=== PATIENT | male | born 1950 | race Caucasian/White ===

== ENCOUNTER 2017-01-03 08:09 | Observation (INO) ==
[2017-01-03] MEDS ORDERED: Lidocaine -MPF 1% 2 ML VIAL ID ONE ×2 (08:21→08:48)
--- NOTE | 2017-01-03 08:29 | Anesthesia Evaluation PreOp ---
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 History: Denies Any Significant HX Other Medical History: Denies Any Significant HX Anesthesia History: No Prior Anesthetic Complications Alcohol Use: heavy Drug use: none Medications and Allergies Aspirin [Lo-Dose Aspirin EC] 81 mg PO DAILY 01/03/17 [History] Budesonide/Formoterol 160/4.5 [Symbicort 160/4.5] 2 puff IH BIDR 01/03/17 [ History] Folic Acid 1 mg PO DAILY 01/03/17 [History] Ipratropium/Albuterol Sulfate [Combivent Respimat Inhal [place]] 1 puff IH QID PRN 01/03/17 [History] Metoprolol [Lopressor] 25 mg PO BID 01/03/17 [History] Multivitamin [One Daily Multivitamin] 1 each PO DAILY 01/03/17 [History] Naproxen [Naprosyn] 500 mg PO BID 01/03/17 [History] Pantoprazole Sodium [Protonix] 40 mg PO DAILY 01/03/17 [History] Potassium Chloride 20 meq PO DAILY 01/03/17 [History] Simvastatin [Zocor] 40 mg PO HS 01/03/17 [History] Spironolactone [Aldactone] 25 mg PO DAILY 01/03/17 [History] Sucralfate [Carafate] 1 gm PO BID 01/03/17 [History] Tamsulosin [Flomax] 0.4 mg PO DAILY 01/03/17 [History] Vitamin B Complex 1 each PO DAILY 01/03/17 [History] Allergies No Known Allergies Allergy (Verified 01/03/17 08:28) - Meds/Allergy Pre-op Review Medications Reviewed: Yes Allergies Reviewed: Yes Beta Blockers on Current Med List: Yes Anesthesia Results - Labs Laboratory Tests 06/22/15 12/23/16 12/23/16 11:31 16:31 16:31 Hgb 11.3 L Hct 33.7 L Plt Count 331 PT 13.3 H INR 1.24 PTT 27.0 Sodium 137 Potassium 4.1 BUN 10 Creatinine 0.74 - Imaging EKG: report reviewed (SR) Additional studies: LVEF 45% from 2015 ECHO, Pulm Htn 59 mm hg Anesthesia Exam O2 Sat Height 1.7 m Height 1.7 m Weight 76.204 kg Weight 76.204 kg O2 Sat by Pulse Oximetry 98 Vital Signs Temp Pulse Resp BP Pulse Ox 98.0 F 90 18 128/74 98 01/03/17 08:27 01/03/17 08:27 01/03/17 08:27 01/03/17 08:27 01/03/17 08:27 Height: 5'7 Weight: 168 lbs NPO (# of Hours): MN Pain Scale: 0 - HEENT Pupil (Motor): Pupils equal, EOMI Mallampati: II Oral Opening: Greater than 3 - SO[place]ELT LOC: Oriented SO[place]EL[place] Motor: Normal RUE, Normal LUE, Normal RLE, Normal LLE, Normal Face SOLE [place]ELT Sensory: Normal: RUE, LUE, RLE, LLE, Face - Cardiac Rhythm: Regular Murmur: None JVD: No Carotid Bruit: No - Pulmonary Breath Sounds: bilateral Clear Respiratory Effort: Symmetrical Anesthesia Assess/Plan ASA Score: 3 (CAD HTN ETOH Abuse) Modified [place] Scale for Level of Consciousness: Cooperative, oriented, and tranquil Anesthetic Plan: General Monitoring Plan: Standard Monitors Recovery Plan: PACU (Discussed GA, agrees to proceed)
[2017-01-03] MEDS ORDERED: Ringers Solution, Lactated 1,000 ML IVC SCH ×2 (08:30→09:00)
[2017-01-03] MEDS ORDERED: Albuterol 2.5 MG/3 ML NEBULIZER IH ONE (08:48)
[2017-01-03] MEDS ORDERED: *HR* FentaNYL (PF) 100 MCG/2 ML VIAL ONE (09:18)
[2017-01-03] MEDS ORDERED: *HR* Propofol 200 MG/20 ML VIAL IVP ONE (09:24)
[2017-01-03] MEDS ORDERED: *HR* Succinylcholine 200 MG/10 ML VIAL IVP ONE (09:24)
--- NOTE | 2017-01-03 11:03 | History & Physical Report ---
Date of Encounter: 01/03/17 Time of Encounter: 09:45 24 Hour HP Update - Instructions Instructions: If the History and Physical is less than 30 days old and was completed prior to A.M. admission and or procedure and has NOT been updated on calendar day of procedure please complete this update prior to performing procedure. - Update Patient reports changes in Medical Condition: No Changes in examination, assessment, or condition: No Changes in Medication: No Preop tests/diagnostics Reviewed: Yes Surgery Remains Indicated: Yes Consent for Planned Operative Procedure(s) Verified: Yes
--- NOTE | 2017-01-03 11:13 | Anesthesia Evaluation Post Op ---
Date of Encounter: 01/03/17 Time of Encounter: 11:12 - Vital Signs Vital Signs: Vital Signs/O2 Sat, Most Current Temp Pulse Resp BP Pulse Ox 97.1 F L 71 16 125/72 96 01/03/17 10:40 01/03/17 10:50 01/03/17 10:50 01/03/17 10:50 01/03/17 10:50 - Lungs Lungs: Clear Ascult./Percussion - Airway Airway: Non-obstructed - Cardiovascular Regular Rate - Mental Status Mental Status: Alert & Oriented, Answers Appropriately - Pain Pain Scale: 1 Pain Scale used: Numeric (1 - 10) - Nausea Vomiting Nausea Vomiting: Not Present - Hydration Hydration: NPO - Discharge PostOp Status: Transfer Patient to floor (VSS, 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
[2017-01-03] MEDS ORDERED: Ondansetron 4 MG/2 ML VIAL IVP ONE (12:00)
[2017-01-03 12:48] LABS: Source of Body Fluid LUL BAL
[2017-01-03 14:50] LABS: Appearance of Body Fluid Cloudy (Clear); Volume of Body Fluid 25 mL
[2017-01-03] MEDS ORDERED: Naloxone 0.4 MG/ML INJ IVP PRN (17:06)
[2017-01-03] MEDS ORDERED: predniSONE 20 MG TABLET PO SCH (17:14)
[2017-01-03] MEDS ORDERED: Azithromycin 250 MG TABLET PO ONE (17:14)
[2017-01-03] MEDS ORDERED: Albuterol 2.5 MG/3 ML NEBULIZER IH PRN (17:16)
--- NOTE | 2017-01-03 18:06 | Internal Med History&Physical ---
<GabinoNita J - Last Filed: 01/03/17 18:12> Date of Encounter: 01/03/17 Time of Encounter: 18:04 Assessment and Plan (1) COPD (chronic obstructive pulmonary disease) Current visit: No Status: Chronic With acute exacerbation. Wheezing on exam and reports increased sputum production. Steroid burst, Z-pack. Continue home inhalers, nebs. Chest x-ray pending Qualifiers: COPD type: COPD with acute exacerbation Qualified Code(s): J44.1 - Chronic obstructive pulmonary disease with (acute) exacerbation (2) Lung mass Current visit: Yes Status: Acute Left upper lobe mass noted on previous imaging. Concern for malignancy with smoking history. Status post lung biopsy 01/03/2017. Pathology and studies pending. Plan for discharge home on 01/04/2017 with outpatient follow-up (3) Essential (primary) hypertension Current visit: Yes Status: Acute Per history. Blood pressure controlled. Continue home BP meds, monitor BP and titrate when necessary (4) CAD (coronary artery disease) Current visit: Yes Status: Acute Per history with CABG 3. Asymptomatic, denies chest pain. Continue home ASA, statin, beta cintia Qualifiers: Coronary Disease-Associated Artery/Lesion type: bypass graft [place] vs. transplanted heart: [place] heart Associated angina: without angina Qualified Code(s): I25.810 - Atherosclerosis of coronary artery bypass graft(s) without angina pectoris (5) DVT prophylaxis Current visit: No Status: Acute SCDs and ambulation Internal Medicine - H&P: HPI Chief complaint: Status post lung biopsy under general anesthesia, lives alone, monitor Admitted From: Home History of present illness: Mr. Correa is a 66 year old male with past medical history hypertension CAD and COPD who presented to [facility] on 01/03/2017 for planned lung biopsy. Procedure was done under general anesthesia and per policy since patient lives alone he would need to be monitored for 24 hours post anesthesia. Therefore he was placed in observation status for continued monitoring. Information obtained from chart review and patient report per patient lung nodule was found on left lung and there is suspicion for possible malignancy. He does have some wheezing on exam and when asked he does report increase in sputum production, no chest pain or shortness of breath, says he was treated for COPD exacerbation a month or so ago. Past Med Surg Social Fam HX - Past Medical History Medical history: asthma, atrial fibrillation, COPD, coronary artery disease, GERD, hyperlipidemia, hypertension, myocardial infarction, valvular heart disease Psychiatric history: no psych history - Past Surgical History Surgical History: coronary bypass (CABG), other - Social History Smoking Status: Former smoker Smokeless Tobacco Status: No Alcohol use: heavy Drug use: none - Family History Mother Adopted: No Family Member Ethnicity: Non- Living Status: Hx Family Cardiac Disorders: No Hx Family Respiratory Disorders: No Hx Family Cancer: No Hx Family GI Disorders: No Hx Family Endocrine Disorder: No Hx Family Neuromuscular Disorders: No Hx Family Neurologic Disorders: Yes (dementia) Hx Family HEENT Disorders: No Hx Family Autoimmune Disorders: No Father Living Status: Hx Family Cancer: Yes (bladder) Internal Medicine - H&P: Meds Aspirin [Lo-Dose Aspirin EC] 81 mg PO DAILY 01/03/17 [History] Atorvastatin [Lipitor] 40 mg PO HS 01/03/17 [History] Budesonide/Formoterol 160/4.5 [Symbicort 160/4.5] 2 puff IH BIDR 01/03/17 [ History] Cyanocobalamin (Vitamin B-12) [Vitamin B-12] 500 mcg PO DAILY 01/03/17 [History] Folic Acid 1 mg PO DAILY 01/03/17 [History] Ipratropium/Albuterol Sulfate [Combivent Respimat Inhal [place]] 1 puff IH QID PRN 01/03/17 [History] Metoprolol [Lopressor] 12.5 mg PO BID 01/03/17 [History] Multivitamin [One Daily Multivitamin] 1 each PO DAILY 01/03/17 [History] Naproxen [Naprosyn] 500 mg PO BID 01/03/17 [History] Pantoprazole Sodium [Protonix] 40 mg PO DAILY 01/03/17 [History] Potassium Chloride 20 meq PO DAILY 01/03/17 [History] Spironolactone [Aldactone] 25 mg PO DAILY 01/03/17 [History] Sucralfate [Carafate] 1 gm PO BID 01/03/17 [History] Terazosin HCl 10 mg PO DAILY 01/03/17 [History] Vitamin B Complex 1 each PO DAILY 01/03/17 [History] Allergies No Known Allergies Allergy (Verified 01/03/17 08:28) All Systems PM: A 10-system review of systems was performed and is negative for pertinent findings except as documented above in the HPI. - Constitutional Constitutional: no chills, no fever(s), no night sweats - EENT Eyes: no change in vision, no discharge, no pain, no photophobia Ears: no ear discharge, no ear pain, no tinnitus Nose, mouth and throat: no dysphagia, no nasal discharge, no neck pain, no sore throat - Cardiovascular Cardiovascular ROS IM: no chest pain, no diaphoresis, no dyspnea, no lightheadedness, no palpitations, no syncope - Respiratory Respiratory: cough, wheezing, excessive phlegm production, no dyspnea - Gastrointestinal Gastrointestinal: no abdominal pain, no diarrhea, no hematemesis, no hematochezia, no melena, no nausea, no vomiting - Musculoskeletal Musculoskeletal ROS IM: no numbness, no tingling - Integumentary Integumentary IM: no rash, no unusual bruising - Neurological Neurological ROS: no confusion, no convulsions, no focal weakness, no numbness, no tingling, no tremor(s) - Hematologic/Lymphatic Hematologic/Lymphatic: no easy bruising - Constitutional Vitals: Temp Pulse Resp BP Pulse Ox 98.2 F 76 18 122/75 94 01/03/17 15:24 01/03/17 15:24 01/03/17 15:24 01/03/17 15:24 01/03/17 15:24 General appearance: Present: A&O X 3, no acute distress - Head Head exam: Present: atraumatic, normocephalic - Eye Eye exam: Present: PERRL, conjuntiva pink, sclera anicteric Pupils: Present: PERRL - Neck Neck exam general surgery: Present: supple, trachea midline. Absent: lymphadenopathy - Respiratory Respiratory exam: Present: CTAB, rhonchi, wheezes. Absent: accessory muscle use , rales - Cardiovascular Cardiovascular exam: Present: RRR, +S1, +S2. Absent: diastolic murmur, gallop, rubs, systolic murmur - GI/Abdominal GI/Abdominal exam: Present: normal bowel sounds, soft, no peritoneal signs. Absent: distended, tenderness - Extremities Exam Extremities exam: Present: warm, radial pulses palpable and symetrical. Absent : calf tenderness, cyanotic, pedal edema - Neurological Exam Neurological exam: Present: CN II-XII intact, oriented X3, no focal deficits. Absent: pronater drift, facial droop, speech deficit - Skin Skin exam: Present: dry, intact <Ashwini Camacho - Last Filed: 01/03/17 20:32> Date of Encounter: 01/03/17 Internal Medicine - H&P: HPI History of present illness: Mr. Correa is a 66 year old male All Systems PM: A 10-system review of systems was performed and is negative for pertinent findings except as documented above in the HPI. - Constitutional Vitals: Temp Pulse Resp BP Pulse Ox 98.2 F 76 18 122/75 99 01/03/17 15:24 01/03/17 15:24 01/03/17 19:39 01/03/17 15:24 01/03/17 19:39 - Attending Attestation I examined this patient and reviewed laboratory, imaging and all diagnostic data. My medical decision-making was reviewed with Nita Lloyd - KOBY. I agree with the documented findings, disposition and treatment plan as described above. Mr. Correa is a 66 year old male with past medical history of HTN, CAD and COPD who underwent a planned bronchoscopy with lung biopsy this morning. Procedure was done under general anesthesia and per policy since patient lives alone he would need to be monitored for 24 hours post anesthesia. Therefore, he was placed in observation status for continued monitoring. Patient reports productive cough and mild wheezing after procedure. Examination shows mild wheezes, more in right lung field than left. He is tolerating room air well. A/P : COPD. pt uses at home combivent 4 times a day and symbicort. Duonebs q4hrs. Symbicort. CXR ordered. will hold on atb and steroids at this time.
[2017-01-03] MEDS: Budesonide/Formoterol 160/4.5 MDI IH SCH (19:39)
[2017-01-03] MEDS: Ipratropium/Albuterol Neb 3 ML IH SCH ×2 (23:18→23:23)
[2017-01-04] MEDS: Ipratropium/Albuterol Neb 3 ML IH SCH ×2 (03:34→08:04)
[2017-01-04 06:09] LABS: Basophils % 0.1 %; Hematocrit 31.8 % (37.5-50.1); Hemoglobin 10.7 g/dL (12.9-16.9); Immature Granulocytes % 0.8 % (0-4); Lymphocytes # 0.9 K/mcL (0.6-4.6); Lymphocytes % 6.6 %; Mean Corpuscular HGB Conc 33.6 g/dL (31.6-35.5); Mean Corpuscular Hemoglobin 34.6 pg (28.0-33.3); Mean Corpuscular Volume 102.9 fL (83.0-100.0); Mean Platelet Volume 9.8 fL (9.4-12.4); Monocytes # 0.5 K/mcL (0.0-1.3); Monocytes % 3.7 %; Platelet Count 260 K/mcL (140-400); Red Blood Count 3.09 M/mcL (4.19-5.50); Red Cell Distribution Width 13.1 % (11.5-14.5); Segmented Neutrophils % 88.8 %
[2017-01-04 06:27] LABS: Alanine Aminotransferase 29 Units/L (0-55); Albumin 3.8 g/dL (3.5-5.0); Albumin/Globulin Ratio 1.1 (1.1-2.2); Alkaline Phosphatase 69 Units/L (38-126); Aspartate Amino Transferase 19 Units/L (5-34); BUN/Creatinine Ratio 21 (6-26); Bilirubin,Total 0.3 mg/dL (0.2-1.2); Blood Urea Nitrogen 17 mg/dL (8-26); Calcium 9.4 mg/dL (8.6-10.8); Carbon Dioxide 21 mEq/L (19-29); Chloride 103 mEq/L (98-109); Globulin 3.6 g/dL (2.4-3.5); Glucose 177 mg/dL (70-99); Osmolality,Calculated 292 (280-300); Potassium 3.9 mEq/L (3.5-4.5); Sodium 138 mEq/L (136-145); Total Protein 7.4 g/dL (6.0-8.3); eGFR For African Americans > 60 (> 60); eGFR For Non-African Americans > 60 (> 60)
[2017-01-04 07:30] VITALS: BP 131/77
[2017-01-04] MEDS: Budesonide/Formoterol 160/4.5 MDI IH SCH (08:04)
--- NOTE | 2017-01-04 08:50 | Discharge Summary ---
Date of Encounter: 01/04/17 Time of Encounter: 08:46 - Discharge Diagnosis (1) COPD (chronic obstructive pulmonary disease) Priority: Primary Status: Acute Qualifiers: COPD type: COPD with acute exacerbation Qualified Code(s): J44.1 - Chronic obstructive pulmonary disease with (acute) exacerbation (2) Lung mass Priority: Primary Status: Chronic (3) CAD (coronary artery disease) Priority: Secondary Status: Chronic Qualifiers: Coronary Disease-Associated Artery/Lesion type: bypass graft [place] vs. transplanted heart: [place] heart Associated angina: without angina Qualified Code(s): I25.810 - Atherosclerosis of coronary artery bypass graft(s) without angina pectoris (4) Essential (primary) hypertension Priority: Secondary Status: Chronic (5) Aortic stenosis, severe Priority: Secondary Status: Chronic - Discharge Medications Prescriptions: Azithromycin [Azithromycin 6-Tab Pack] 250 mg PO PER PKG DI #6 tab PredniSONE [Deltasone] 40 mg PO DAILY #3 tablet Home Medications: Aspirin [Lo-Dose Aspirin EC] 81 mg PO DAILY 01/03/17 [History] Atorvastatin [Lipitor] 40 mg PO HS 01/03/17 [History] Budesonide/Formoterol 160/4.5 [Symbicort 160/4.5] 2 puff IH BIDR 01/03/17 [ History] Cyanocobalamin (Vitamin B-12) [Vitamin B-12] 500 mcg PO DAILY 01/03/17 [History] Folic Acid 1 mg PO DAILY 01/03/17 [History] Ipratropium/Albuterol Sulfate [Combivent Respimat Inhal [place]] 1 puff IH QID PRN 01/03/17 [History] Metoprolol [Lopressor] 12.5 mg PO BID 01/03/17 [History] Multivitamin [One Daily Multivitamin] 1 each PO DAILY 01/03/17 [History] Naproxen [Naprosyn] 500 mg PO BID 01/03/17 [History] Pantoprazole Sodium [Protonix] 40 mg PO DAILY 01/03/17 [History] Potassium Chloride 20 meq PO DAILY 01/03/17 [History] Spironolactone [Aldactone] 25 mg PO DAILY 01/03/17 [History] Sucralfate [Carafate] 1 gm PO BID 01/03/17 [History] Terazosin HCl 10 mg PO DAILY 01/03/17 [History] Vitamin B Complex 1 each PO DAILY 01/03/17 [History] Azithromycin [Azithromycin 6-Tab Pack] 250 mg PO PER PKG DI #6 tab 01/04/17 [Rx] PredniSONE [Deltasone] 40 mg PO DAILY #3 tablet 01/04/17 [Rx] Allergies/Adverse Reactions: Allergies No Known Allergies Allergy (Verified 01/03/17 08:28) Date of admission: 01/03/17 17:06 Primary care physician: PCP [place] Discharging clinician: Osiel Smith Anticipated date of discharge: 01/04/17 - Patient Status Disposition: Home, Self-Care Condition: Good Functional capacity at discharge: independent ambulation Overall status at discharge: patient is progressing back to baseline - Discharge Instructions Follow [facility] With: [facility] [Primary Care Provider] - - Diet and Activity Activity: increase activity as tolerated Diet: advance to your usual diet Hospital course: Mr. Correa is a 66 year old male with hx of COPD, CAD had outpatient bronchoscopy to eval lung mass. He tolerated procedure well but in order to go home he had to have someone stay with him for 24 hours. No one was available so he was placed in observation. Mr. Correa was placed in observation following bronchoscopy. He had significant wheezing on admission and was treated for acute COPD exacerbation. He was given PO abx and PO steroids as well as aerosols. This morning he is doing better. He is still wheezing but feels about at baseline. He is afebrile with good vitals and at this time is felt stable for discharge home. He will be given brief course of steroids and abx at discharge. - Time Spent with Patient Total time spent providing and/or coordinating discharge services: 32min - Constitutional Vitals: Temp Pulse Resp BP Pulse Ox 98.5 F 95 18 131/77 98 01/04/17 07:29 01/04/17 07:29 01/04/17 07:29 01/04/17 07:29 01/04/17 07:29 General appearance: Present: A&O X 3, pleasant, answers questions appropriately - Head Head exam: Present: normocephalic - Eye Eye exam: Present: conjuntiva pink - ENT ENT exam: Present: mucous membranes moist - Respiratory Respiratory exam: Present: prolonged expiratory phase, wheezes. Absent: respiratory distress - Cardiovascular Cardiovascular exam: Present: RRR, systolic murmur - GI/Abdominal GI/Abdominal exam: Present: soft. Absent: mass, tenderness - Extremities Exam Extremities exam: Present: warm. Absent: pedal edema - Neurological Exam Neurological exam: Present: alert, oriented X3, no focal deficits - Psychiatric Psychiatric exam: Present: normal affect, normal mood - Skin Skin exam: Present: dry, warm. Absent: rash
[2017-01-04] MEDS ORDERED: Aspirin Enteric Coated 81 MG Tablet PO SCH (09:00)
[2017-01-04] MEDS ORDERED: Spironolactone 25 MG TABLET PO SCH (09:00)
[2017-01-05] MEDS ORDERED: Azithromycin 250 MG TABLET PO SCH (09:00)
== END 2017-01-04 09:25 | disposition home or self-care (01) ==
LOC: SAMDAY 08:09 → 2ANU 08:09 → SUATTDRO 17:06
PROVIDERS: ADMIT Registered Nurse; ATTEND Internal Medicine

== ENCOUNTER 2017-01-24 07:52 | Inpatient (IN) ==
[2017-01-24 09:51] LABS: INR 1.1; Prothrombin Time 11.5 Seconds (9.4-12.1)
[2017-01-24] MEDS: Ringers Solution, Lactated 500 ML IVC SCH ×2 (09:52→14:43)
[2017-01-24] MEDS ORDERED: *HR* Midazolam HCl 2 MG/2 ML VIAL IVP PRN (10:07)
[2017-01-24] MEDS ORDERED: *HR* FentaNYL (PF) 100 MCG/2 ML VIAL IVP PRN (10:07)
--- NOTE | 2017-01-24 10:53 | History & Physical Report ---
Date of Encounter: 01/24/17 Time of Encounter: 10:00 24 Hour HP Update - Instructions Instructions: If the History and Physical is less than 30 days old and was completed prior to A.M. admission and or procedure and has NOT been updated on calendar day of procedure please complete this update prior to performing procedure. - Update Patient reports changes in Medical Condition: No Changes in examination, assessment, or condition: No Changes in Medication: No Preop tests/diagnostics Reviewed: Yes Surgery Remains Indicated: Yes Consent for Planned Operative Procedure(s) Verified: Yes - Pre-Operative Checklist Preoperative Checklist Indicated: Yes Prophylactic Antibiotic Ordered: No Home Medications Include Beta Tha: Yes Beta Tha Taken Today (Day of Surgery): Yes Beta Tha Taken Yesterday (Day Prior to Surgery): Yes Is VTE Prophylaxis Indicated?: NO
--- NOTE | 2017-01-24 10:54 | Pre-Sedation Evaluation ---
Pre-sedation evaluation - Pre-sedation checklist Date of procedure: 01/24/17 Procedure: ct guided Left lung biopsy Recent Vitals: Last Vital Signs Temp 97.9 F 01/24/17 09:44 Pulse 66 01/24/17 10:47 Resp 14 01/24/17 10:47 BP 99/68 01/24/17 10:47 Pulse Ox 95 01/24/17 10:47 H&P (including ROS) documented in medical record: Yes Previous reaction to sedatives/anesthetics: No Dietary Status: NPO after Midnight Airway Assessment: Patient can open mouth completely, TMJ function normal, Micrognathia (under-bite, receding chin) absent, Neck with adequate range of motion Dentition: No loose teeth or bridges Possible difficult airway: No ASA Classification *see protocol: CLASS II-Mild systemic disease Plan of Care: Pt appropriate candidate for procedure/moderate/conscious sedation , Risks/benefits of procedure/sedation discussed w/ patient/family, If not NPO; Risk of intake outweiged by necessity to perform procedure
--- NOTE | 2017-01-24 10:55 | IR Procedure Note ---
Date of procedure: 01/24/17 Consent Obtained: Written consent Timeout: Correct patient and procedure verified, Correct site verified, Time out performed, Skin prep completed Local anesthetic: Lidocaine 1% Indications: Left lung PET positive nodule Procedure Performed: Left lung bx Site/Technique: Percutaneous technique Results/Findings: No ptx s/p bx. Portable cxr to be done in 2 hrs and in am. Estimated blood loss (cc): 0 Complications: None; Tolerated procedure well Post Procedure Treatment Plan: Monitoring for 23hr obs for ptx risk, emphysema.
[2017-01-24] MEDS ORDERED: Naloxone 0.4 MG/ML INJ IVP PRN (11:18)
[2017-01-24] MEDS ORDERED: *HR* Morphine 2 MG/ML SYRINGE IVP PRN (11:18)
[2017-01-24] MEDS ORDERED: Acetaminophen 325 MG TABLET PO PRN (11:18)
--- NOTE | 2017-01-24 12:18 | Internal Med History&Physical ---
Date of Encounter: 01/24/17 Time of Encounter: 12:18 Assessment and Plan (1) Status post biopsy Current visit: Yes Status: Acute Follow repeat CXR for pneumothorax monitoring Rpt CXR a.m as well Monitor closely Anticipate discharge a.m if not CXR findings (2) Lung mass Current visit: Yes Status: Chronic Follow up results and follow up with Oncology and Pulmonology as out-patient (3) COPD (chronic obstructive pulmonary disease) Current visit: Yes Status: Chronic Not wheezing at this time Resume home meds [place] prn Qualifiers: COPD type: COPD with acute exacerbation Qualified Code(s): J44.1 - Chronic obstructive pulmonary disease with (acute) exacerbation (4) CAD (coronary artery disease) Current visit: Yes Status: Chronic No chest pain Resume home meds Qualifiers: Coronary Disease-Associated Artery/Lesion type: bypass graft [place] vs. transplanted heart: [place] heart Associated angina: without angina Qualified Code(s): I25.810 - Atherosclerosis of coronary artery bypass graft(s) without angina pectoris (5) Essential (primary) hypertension Current visit: Yes Status: Chronic Blood pressure controlled at this time, resume home meds Internal Medicine - H&P: HPI Chief complaint: I had a biopsy Admitted From: Home Plans for Post Hospital Care: Home History of present illness: 66 Y/O M with PMH of HTN, CAD s/p CABG, Emphysema, Aortic Stenosis s/p AVR, Lung nodule s/p biopsy November 2016 with results showing benign lymphocytes, scheduled for another biopsy today, IR guided by radiology Procedure was done under general anesthesia, patient with emphysema and high risk for pneumothorax, also, patient is supposed to be monitored at home for the next 24 hours post-op, however, patient lives alone and has no family members. Radiologist called and requested observation in the hospital for the next few hours. Patient seen and evaluated at bedside, s/p biopsy. Denies new complains, has no pain, no cough, no difficulty breathing, seems to be at his baseline, no change in urinary or bowel habits. No fever or chills. Denies any complains at all He has no advanced directives and he is full code Repeat CXR is pending and scheduled for 2 hrs post-procedure At bedside, patient looks comfortable, in no form of distress, speaks full sentences, breathing comfortably Past Med Surg Social Fam HX - Past Medical History Medical history: asthma, atrial fibrillation, COPD, coronary artery disease, GERD, hyperlipidemia, hypertension, myocardial infarction, valvular heart disease Psychiatric history: no psych history - Past Surgical History Surgical History: coronary bypass (CABG), other - Social History Smoking Status: Former smoker Smokeless Tobacco Status: No Alcohol use: heavy Drug use: none - Family History Mother Adopted: No Family Member Ethnicity: Non- Living Status: Hx Family Cardiac Disorders: No Hx Family Respiratory Disorders: No Hx Family Cancer: No Hx Family GI Disorders: No Hx Family Endocrine Disorder: No Hx Family Neuromuscular Disorders: No Hx Family Neurologic Disorders: Yes (dementia) Hx Family HEENT Disorders: No Hx Family Autoimmune Disorders: No Father Living Status: Hx Family Cancer: Yes (bladder) Internal Medicine - H&P: Meds Aspirin [Lo-Dose Aspirin EC] 81 mg PO DAILY 01/03/17 [History] Atorvastatin [Lipitor] 40 mg PO HS 01/03/17 [History] Budesonide/Formoterol 160/4.5 [Symbicort 160/4.5] 2 puff IH BIDR 01/03/17 [ History] Cyanocobalamin (Vitamin B-12) [Vitamin B-12] 500 mcg PO DAILY 01/03/17 [History] Folic Acid 1 mg PO DAILY 01/03/17 [History] Ipratropium/Albuterol Sulfate [Combivent Respimat Inhal [place]] 1 puff IH QID PRN 01/03/17 [History] Metoprolol [Lopressor] 12.5 mg PO BID 01/03/17 [History] Multivitamin [One Daily Multivitamin] 1 each PO DAILY 01/03/17 [History] Pantoprazole Sodium [Protonix] 40 mg PO DAILY 01/03/17 [History] Spironolactone [Aldactone] 25 mg PO DAILY 01/03/17 [History] Sucralfate [Carafate] 1 gm PO BID 01/03/17 [History] Terazosin HCl 10 mg PO DAILY 01/03/17 [History] Ascorbic Acid [Vitamin C] 500 mg PO DAILY 01/24/17 [History] Nitroglycerin [Nitrostat] 0.4 mg SL PRN PRN 01/24/17 [History] Allergies No Known Allergies Allergy (Verified 01/03/17 08:28) All Systems PM: A 10-system review of systems was performed and is negative for pertinent findings except as documented above in the HPI. - Constitutional Constitutional: no chills, no fever(s), no night sweats - EENT Eyes: no change in vision, no discharge, no pain, no photophobia Ears: no ear discharge, no ear pain, no tinnitus Nose, mouth and throat: no dysphagia, no nasal discharge, no neck pain, no sore throat - Cardiovascular Cardiovascular ROS IM: no chest pain, no diaphoresis, no dyspnea, no lightheadedness, no palpitations, no syncope - Respiratory Respiratory: no cough, no dyspnea, no wheezing, no excessive phlegm production - Gastrointestinal Gastrointestinal: no abdominal pain, no diarrhea, no hematemesis, no hematochezia, no melena, no nausea, no vomiting - Musculoskeletal Musculoskeletal ROS IM: no numbness, no tingling - Integumentary Integumentary IM: no rash, no unusual bruising - Neurological Neurological ROS: no confusion, no convulsions, no focal weakness, no numbness, no tingling, no tremor(s) - Hematologic/Lymphatic Hematologic/Lymphatic: no easy bruising - Constitutional Vitals: Temp Pulse Resp BP Pulse Ox 97.9 F 68 16 126/70 100 01/24/17 11:42 01/24/17 11:42 01/24/17 11:42 01/24/17 11:42 01/24/17 11:45 General appearance: Present: A&O X 3, pleasant, no acute distress - Head Head exam: Present: atraumatic, normocephalic - Eye Eye exam: Present: PERRL, conjuntiva pink, sclera anicteric Pupils: Present: PERRL - Neck Neck exam general surgery: Present: supple, trachea midline. Absent: lymphadenopathy - Respiratory Respiratory exam: Present: CTAB. Absent: accessory muscle use, rales, rhonchi, wheezes - Cardiovascular Cardiovascular exam: Present: RRR, +S1, +S2. Absent: diastolic murmur, gallop, rubs, systolic murmur - GI/Abdominal GI/Abdominal exam: Present: normal bowel sounds, soft, no peritoneal signs. Absent: distended, tenderness - Extremities Exam Extremities exam: Present: warm, radial pulses palpable and symetrical. Absent : calf tenderness, cyanotic, pedal edema - Neurological Exam Neurological exam: Present: alert, CN II-XII intact, oriented X3, no focal deficits. Absent: pronater drift, facial droop, speech deficit - Skin Skin exam: Present: dry, intact
[2017-01-24] MEDS ORDERED: Nitroglycerin 0.4 MG TAB.SUBL SL PRN (12:46)
--- NOTE | 2017-01-24 16:12 | IR Procedure Note ---
Date of procedure: 01/24/17 Consent Obtained: Written consent Timeout: Correct patient and procedure verified, Correct site verified, Time out performed, Skin prep completed Local anesthetic: Lidocaine 1% Indications: Pneumothorax after lung biopsy Procedure Performed: Chest tube placement Site/Technique: Left 10fr chest tube placement Results/Findings: Working well Estimated blood loss (cc): 1 Complications: None; Tolerated procedure well Post Procedure Treatment Plan: Monitoring in pts room
[2017-01-24] MEDS: *HR* HYDROcodone/Acet 5/325 mg TABLET PO PRN ×2 (16:24→20:11)
[2017-01-24] MEDS ORDERED: Ipratropium/Albuterol Neb 3 ML IH PRN (17:00)
[2017-01-24] MEDS: Budesonide/Formoterol 160/4.5 MDI IH SCH (21:15)
[2017-01-25] MEDS ORDERED: *HR* Enoxaparin 40 MG/0.4 ML SYRINGE SQ SCH (06:00)
[2017-01-25 07:00] LABS: Basophils # 0.1 K/mcL (0.0-0.2); Basophils % 0.9 %; Eosinophils # 0.2 K/mcL (0.0-0.6); Eosinophils % 4.4 %; Hematocrit 33.4 % (37.5-50.1); Hemoglobin 10.8 g/dL (12.9-16.9); Immature Granulocytes % 0.4 % (0-4); Lymphocytes # 1.3 K/mcL (0.6-4.6); Lymphocytes % 23.1 %; Mean Corpuscular HGB Conc 32.3 g/dL (31.6-35.5); Mean Corpuscular Hemoglobin 33.6 pg (28.0-33.3); Mean Platelet Volume 9.9 fL (9.4-12.4); Monocytes # 0.6 K/mcL (0.0-1.3); Monocytes % 11.5 %; Neutrophils # 3.3 K/mcL (1.6-8.9); Platelet Count 250 K/mcL (140-400); Red Blood Count 3.21 M/mcL (4.19-5.50); Red Cell Distribution Width 12.8 % (11.5-14.5); Segmented Neutrophils % 59.7 %
[2017-01-25] MEDS: *HR* HYDROcodone/Acet 5/325 mg TABLET PO PRN (08:08)
[2017-01-25] MEDS ORDERED: Folic Acid 1 MG TABLET PO SCH (09:00)
[2017-01-25] MEDS ORDERED: Spironolactone 25 MG TABLET PO SCH (09:00)
[2017-01-25] MEDS ORDERED: Aspirin Enteric Coated 81 MG Tablet PO SCH (09:00)
[2017-01-25] MEDS ORDERED: Ascorbic Acid 500 MG TABLET PO SCH (09:00)
[2017-01-25] MEDS ORDERED: Multivit/Ca/Min/Fe/FA 1 TAB TABLET PO SCH (09:00)
[2017-01-25] MEDS ORDERED: Cyanocobalamin (B-12) 1,000 MCG TABLET PO SCH (09:00)
[2017-01-25] MEDS: Budesonide/Formoterol 160/4.5 MDI IH SCH (10:04)
--- NOTE | 2017-01-25 15:07 | Discharge Summary ---
Date of Encounter: 01/25/17 Time of Encounter: 08:30 - Discharge Diagnosis (1) Status post biopsy Priority: Primary Status: Acute (2) COPD (chronic obstructive pulmonary disease) Priority: Secondary Status: Chronic Qualifiers: COPD type: emphysema Emphysema type: other Qualified Code(s): J43.8 - Other emphysema (3) Aortic stenosis, severe Priority: Secondary Status: Chronic (4) Essential (primary) hypertension Priority: Secondary Status: Chronic (5) CAD (coronary artery disease) Priority: Secondary Status: Chronic Qualifiers: Coronary Disease-Associated Artery/Lesion type: bypass graft [place] vs. transplanted heart: [place] heart Associated angina: without angina Qualified Code(s): I25.810 - Atherosclerosis of coronary artery bypass graft(s) without angina pectoris (6) Lung mass Priority: Secondary Status: Chronic - Discharge Medications Home Medications: Aspirin [Lo-Dose Aspirin EC] 81 mg PO DAILY 01/03/17 [History] Atorvastatin [Lipitor] 40 mg PO HS 01/03/17 [History] Budesonide/Formoterol 160/4.5 [Symbicort 160/4.5] 2 puff IH BID 01/03/17 [ History] Cyanocobalamin (Vitamin B-12) [Vitamin B-12] 500 mcg PO DAILY 01/03/17 [History] Ipratropium/Albuterol Sulfate [Combivent Respimat Inhal [place]] 1 puff IH QID PRN 01/03/17 [History] Metoprolol [Lopressor] 12.5 mg PO BID 01/03/17 [History] Multivitamin [One Daily Multivitamin] 1 each PO DAILY 01/03/17 [History] Pantoprazole Sodium [Protonix] 40 mg PO DAILY 01/03/17 [History] Spironolactone [Aldactone] 25 mg PO DAILY 01/03/17 [History] Sucralfate [Carafate] 1 gm PO BID 01/03/17 [History] Terazosin HCl 10 mg PO DAILY 01/03/17 [History] Nitroglycerin [Nitrostat] 0.4 mg SL PRN PRN 01/24/17 [History] Allergies/Adverse Reactions: Allergies No Known Allergies Allergy (Verified 01/03/17 08:28) Procedures/tests Complete & Pending: Procedures Performed prior 72 hours Category Date Time Status CT biopsy lung LT [CT] Routine Cat Scan 01/24/17 09:[address] guided asp with tube [CT] Routine Cat Scan 01/24/17 Completed Date of admission: 01/24/17 11:18 Primary care physician: PCP BERTA Discharging clinician: Roxy Fuentes Anticipated date of discharge: 01/25/17 - Patient Status Disposition: Home, Self-Care Condition: Fair Functional capacity at discharge: independent ambulation Overall status at discharge: patient is progressing back to baseline - Discharge Instructions Follow Up With: NO,PCP [Primary Care Provider] - Additional Instructions: F/up with PCP in 2 weeks - Diet and Activity Activity: resume usual activities as tolerated Diet: low fat, low cholesterol, low salt diet Hospital course: Mr. Correa is a 66 year old male with the above medical problems who presented for outpatient CT-guided left-sided lung mass biopsy, following which he was admitted for observation as he lives alone and needed to be monitored for pneumothorax for 24 hours postprocedure due to underlying emphysema. Patient underwent bronchoscopy and biopsy of left lung mass, which was negative for malignant cells and showed benign lymphocytes. Current pathology report is pending. Patient was noted to remain hemodynamically stable since admission. Postprocedure chest x-ray showed a questionable small left PICA pneumothorax and patient received left-sided chest tube placement by IR. Subsequent chest x- rays showed resolution of pneumothorax. Case discussed with interventional radiologist, patient's chest tube was removed today and follow-up chest x-ray showed a very small left apical pneumothorax, stable. Patient is asymptomatic and noted to be saturating well on room air and is medically stable for discharge at this time, with outpatient follow-up. - Time Spent with Patient Total time spent providing and/or coordinating discharge services: Greater than 30 minutes (40 min) - Constitutional Vitals: Temp Pulse Resp BP Pulse Ox 98.4 F 66 17 107/74 97 01/25/17 11:26 01/25/17 11:26 01/25/17 11:26 01/25/17 11:26 01/25/17 11:26 General appearance: Present: A&O X 3, answers questions appropriately - Respiratory Respiratory exam: Present: CTAB. Absent: accessory muscle use, rales, rhonchi, wheezes - Cardiovascular Cardiovascular exam: Present: RRR, +S1, +S2. Absent: diastolic murmur, gallop, rubs, systolic murmur
[2017-01-25 15:16] VITALS: BP 104/47
== END 2017-01-25 15:48 | disposition home or self-care (01) | DRG 181 ==
LOC: RAD 07:52 → 3ANU 11:02 → SUATTDRO 11:18
PROVIDERS: ADMIT Internal Medicine; ATTEND Internal Medicine

== ENCOUNTER 2020-02-11 18:22 | Observation (INO) ==
[2020-02-11] MEDS: Nitroglycerin 0.4 MG TAB.SUBL SL PRN ×2 (18:40→18:52)
[2020-02-11] MEDS ORDERED: Isovue-370 500 ML BOTTLE IVP ONE (19:13)
[2020-02-11] MEDS ORDERED: *HR* FentaNYL (PF) 100 MCG/2 ML VIAL IVP ONE (19:13)
[2020-02-11 19:14] LABS: Basophils # 0.1 K/mcL (0.0-0.2); Basophils % 0.9 %; Eosinophils # 0.2 K/mcL (0.0-0.6); Hematocrit 32.4 % (37.5-50.1); Hemoglobin 11.1 g/dL (12.9-16.9); Immature Granulocytes % 0.4 % (0-4); Lymphocytes # 1.5 K/mcL (0.6-4.6); Lymphocytes % 18.5 %; Mean Corpuscular HGB Conc 34.3 g/dL (31.6-35.5); Mean Corpuscular Hemoglobin 35.1 pg (28.0-33.3); Mean Corpuscular Volume 102.5 fL (83.0-100.0); Mean Platelet Volume 9.7 fL (9.4-12.4); Monocytes # 0.7 K/mcL (0.0-1.3); Monocytes % 8.4 %; Neutrophils # 5.5 K/mcL (1.6-8.9); Platelet Count 223 K/mcL (140-400); Red Blood Count 3.16 M/mcL (4.19-5.50); Red Cell Distribution Width 12.2 % (11.5-14.5); Segmented Neutrophils % 69.8 %; White Blood Count 7.8 K/mcL (4.3-11.1)
[2020-02-11 19:50] LABS: Alanine Aminotransferase 39 Units/L (7-52); Albumin 4.4 g/dL (3.5-5.7); Albumin/Globulin Ratio 1.7 (1.1-2.2); Alkaline Phosphatase 62 Units/L (34-104); Aspartate Amino Transferase 31 Units/L (13-39); BUN/Creatinine Ratio 11 (6-26); Bilirubin,Direct 0.1 mg/dL (0.0-0.2); Bilirubin,Indirect 0.2 mg/dL (0.0-1.0); Bilirubin,Total 0.3 mg/dL (0.3-1.0); Blood Urea Nitrogen 8 mg/dL (8-23); Calcium 9.2 mg/dL (8.6-10.3); Carbon Dioxide 24 mEq/L (23-29); Chloride 99 mEq/L (98-107); Globulin 2.6 g/dL (2.4-3.5); Glucose 93 mg/dL (70-105); Lipase 17 Units/L (11-82); Osmolality,Calculated 276 (280-300); Sodium 134 mEq/L (136-145); Troponin I < 0.03 ng/mL (< 0.04); eGFR For African Americans > 60 (> 60); eGFR For Non-African Americans > 60 (> 60)
[2020-02-11 21:48] LABS: Ethanol 28 mg/dL (Less than 10)
[2020-02-11] MEDS ORDERED: Perflutren Lipid Microsphere 1.3 ML in 0.9 % Sodium Chloride 8.7 ML IVP PRN (23:58)
[2020-02-12] MEDS ORDERED: Morphine Sulfate 2 MG/ML SYRINGE IVP PRN (02:23)
[2020-02-12] MEDS ORDERED: Ondansetron 4 MG/2 ML VIAL IVP PRN (02:26)
[2020-02-12] MEDS ORDERED: Naloxone 0.4 MG/ML INJ IVP PRN (02:26)
[2020-02-12] MEDS ORDERED: *HR* LORazepam 2 MG/ML VIAL IVP PRN ×3 (02:40)
[2020-02-12] MEDS ORDERED: *HR* Heparin 5,000 UNIT/ML VIAL SQ SCH (06:00)
[2020-02-12] MEDS ORDERED: Regadenoson 0.4 MG/5 ML SYRINGE IVP ONE (06:19)
[2020-02-12 06:45] LABS: Hematocrit 34.6 % (37.5-50.1); Hemoglobin 12.1 g/dL (12.9-16.9); Mean Corpuscular Hemoglobin 35.2 pg (28.0-33.3); Mean Corpuscular Volume 100.6 fL (83.0-100.0); Mean Platelet Volume 9.4 fL (9.4-12.4); Platelet Count 213 K/mcL (140-400); Red Blood Count 3.44 M/mcL (4.19-5.50); Red Cell Distribution Width 12.2 % (11.5-14.5)
[2020-02-12 06:46] LABS: White Blood Count 12.2 K/mcL (4.3-11.1)
[2020-02-12 06:50] LABS: Prothrombin Time 11.3 Seconds (9.4-12.1)
[2020-02-12 06:53] LABS: Activated Partial Thrombo Time 30.8 Seconds (26.0-36.0)
[2020-02-12 07:10] LABS: Amylase 49 Units/L (29-103); BUN/Creatinine Ratio 10 (6-26); Blood Urea Nitrogen 7 mg/dL (8-23); Carbon Dioxide 26 mEq/L (23-29); Chloride 97 mEq/L (98-107); Chol/HDL Ratio 2.9 (0-4.9); Cholesterol 156 mg/dL (< 200); Glucose 108 mg/dL (70-105); HDL Cholesterol 54 mg/dL (40-59); LDL Cholesterol,Calculated 82 mg/dL (< 100); Magnesium 1.6 mg/dL (1.6-2.6); Osmolality,Calculated 275 (280-300); Potassium 3.8 mEq/L (3.5-5.1); Sodium 133 mEq/L (136-145); Triglycerides 98 mg/dL (< 150); Troponin I < 0.03 ng/mL (< 0.04); eGFR For African Americans > 60 (> 60); eGFR For Non-African Americans > 60 (> 60)
[2020-02-12] MEDS ORDERED: Cyanocobalamin (B-12) 1,000 MCG TABLET PO SCH (09:00)
[2020-02-12] MEDS ORDERED: Folic Acid 1 MG TABLET PO SCH (09:00)
[2020-02-12] MEDS ORDERED: Aspirin 81 MG TAB.CHEW PO SCH (09:00)
[2020-02-12] MEDS ORDERED: Spironolactone 25 MG TABLET PO SCH (09:00)
[2020-02-12] MEDS ORDERED: Ipratropium/Albuterol Neb 3 ML IH SCH (10:00)
[2020-02-12] MEDS ORDERED: Tiotropium 18 MCG inhalation IH SCH (10:00)
[2020-02-12] MEDS ORDERED: Budesonide/Formoterol 160/4.5 1 PUFF INH IH SCH (10:00)
[2020-02-12 10:59] VITALS: BP 103/65
== END 2020-02-12 14:03 | disposition home or self-care (01) ==
LOC: 3BNU 18:22 → EMEROOARM 18:22 → SUATTDRO 21:55 → 3BNU 22:35
PROVIDERS: ADMIT Internal Medicine; ATTEND Internal Medicine

== ENCOUNTER 2020-11-11 13:59 | Inpatient (IN) ==
[2020-11-11] MEDS ORDERED: Isovue-370 500 ML BOTTLE IVP ONE (14:12)
[2020-11-11 14:42] LABS: Basophils # 0.1 K/mcL (0.0-0.2); Basophils % 0.5 %; Eosinophils # 0.1 K/mcL (0.0-0.6); Eosinophils % 0.5 %; Hematocrit 34.3 % (37.5-50.1); Hemoglobin 11.7 g/dL (12.9-16.9); Immature Granulocytes % 0.5 % (0-4); Lymphocytes # 1.2 K/mcL (0.6-4.6); Lymphocytes % 10.6 %; Mean Corpuscular HGB Conc 34.1 g/dL (31.6-35.5); Mean Corpuscular Hemoglobin 35.5 pg (28.0-33.3); Mean Corpuscular Volume 103.9 fL (83.0-100.0); Monocytes # 0.9 K/mcL (0.0-1.3); Monocytes % 7.7 %; Platelet Count 186 K/mcL (140-400); Red Cell Distribution Width 12.7 % (11.5-14.5); Segmented Neutrophils % 80.2 %; White Blood Count 11.2 K/mcL (4.3-11.1)
[2020-11-11] MEDS ORDERED: 0.9 % Sodium Chloride 1,000 ML IVC ONE (14:46)
[2020-11-11] MEDS ORDERED: levoFLOXacin 750 MG/150 ML 750 MG/150 ML BAG IVPB ONE (14:46)
[2020-11-11 14:54] LABS: INR 1.1; Prothrombin Time 12.8 Seconds (9.4-12.1)
[2020-11-11 14:56] LABS: Activated Partial Thrombo Time 28.7 Seconds (26.0-36.0)
[2020-11-11 15:02] LABS: BUN/Creatinine Ratio 12 (6-26); Blood Urea Nitrogen 10 mg/dL (8-23); Carbon Dioxide 26 mEq/L (23-29); Chloride 100 mEq/L (98-107); Glucose 112 mg/dL (70-105); Osmolality,Calculated 282 (280-300); Potassium 4.4 mEq/L (3.5-5.1); Sodium 136 mEq/L (136-145); eGFR For African Americans > 60 (> 60); eGFR For Non-African Americans > 60 (> 60)
[2020-11-11 15:19] LABS: Troponin I 0.06 ng/mL (< 0.04)
[2020-11-11] MEDS ORDERED: Furosemide 40 MG/4 ML VIAL IVP ONE (15:28)
[2020-11-11] MEDS ORDERED: *HR* Heparin 5,000 UNIT/ML VIAL IVP ONE (15:59)
[2020-11-11] MEDS ORDERED: *HR* Heparin 5,000 UNIT/ML VIAL IVP PRN ×2 (15:59)
[2020-11-11] MEDS: Heparin 25,000UNIT/250ML 1/2NS 25,000 UNIT/250 ML IV.SOLN IVC SCH (16:16)
[2020-11-11] MEDS ORDERED: Naloxone 0.4 MG/ML INJ IVP PRN (16:27)
[2020-11-11] MEDS ORDERED: *HR* HYDROcodone/Acet 5/325 mg TABLET PO PRN (16:27)
[2020-11-11] MEDS ORDERED: Ondansetron 4 MG/2 ML VIAL IVP PRN (16:27)
[2020-11-11] MEDS ORDERED: Nitroglycerin 0.4 MG TAB.SUBL SL PRN (16:29)
[2020-11-11] MEDS ORDERED: Ipratropium/Albuterol Neb 3 ML IH PRN (16:31)
[2020-11-11 16:38] LABS: Heparin anti-factor XA UFH < 0.04 IU/mL (0.30-0.70); INR 1.1; Prothrombin Time 12.6 Seconds (9.4-12.1)
[2020-11-11] MEDS ORDERED: Perflutren Lipid Microsphere 1.3 ML in 0.9 % Sodium Chloride 8.7 ML IVP PRN (17:12)
[2020-11-11] MEDS: Furosemide 20 MG/2 ML VIAL IVP SCH (21:06)
[2020-11-11] MEDS: Budesonide/Formoterol 160/4.5 1 PUFF INH IH SCH (21:31)
[2020-11-12 02:59] LABS: BUN/Creatinine Ratio 18 (6-26); Blood Urea Nitrogen 17 mg/dL (8-23); Carbon Dioxide 26 mEq/L (23-29); Chloride 100 mEq/L (98-107); Glucose 98 mg/dL (70-105); Magnesium 1.9 mg/dL (1.6-2.6); Osmolality,Calculated 288 (280-300); Potassium 3.9 mEq/L (3.5-5.1); Sodium 138 mEq/L (136-145); eGFR For African Americans > 60 (> 60); eGFR For Non-African Americans > 60 (> 60)
[2020-11-12] MEDS: Budesonide/Formoterol 160/4.5 1 PUFF INH IH SCH ×2 (07:26→20:04)
[2020-11-12] MEDS ORDERED: Spironolactone 25 MG TABLET PO SCH (09:00)
[2020-11-12] MEDS: Furosemide 20 MG/2 ML VIAL IVP SCH ×2 (09:03→20:51)
[2020-11-12] MEDS: Aspirin Enteric Coated 81 MG Tablet PO SCH (09:09)
[2020-11-12] MEDS: Folic Acid 1 MG TABLET PO SCH (09:10)
[2020-11-12] MEDS: Heparin 25,000UNIT/250ML 1/2NS 25,000 UNIT/250 ML IV.SOLN IVC SCH (19:11)
[2020-11-12] MEDS: Metoprolol XL (24 HR) Succ 25 MG TAB.ER.24H PO SCH (20:51)
[2020-11-13 06:16] LABS: Basophils # 0.1 K/mcL (0.0-0.2); Eosinophils # 0.2 K/mcL (0.0-0.6); Eosinophils % 2.1 %; Hematocrit 35.6 % (37.5-50.1); Hemoglobin 12.2 g/dL (12.9-16.9); Immature Granulocytes % 0.4 % (0-4); Lymphocytes # 1.5 K/mcL (0.6-4.6); Lymphocytes % 19.2 %; Mean Corpuscular HGB Conc 34.3 g/dL (31.6-35.5); Mean Corpuscular Hemoglobin 36.2 pg (28.0-33.3); Mean Corpuscular Volume 105.6 fL (83.0-100.0); Mean Platelet Volume 10.4 fL (9.4-12.4); Monocytes # 0.9 K/mcL (0.0-1.3); Monocytes % 11.2 %; Neutrophils # 5.3 K/mcL (1.6-8.9); Platelet Count 187 K/mcL (140-400); Red Blood Count 3.37 M/mcL (4.19-5.50); Segmented Neutrophils % 66.1 %
[2020-11-13] MEDS: Budesonide/Formoterol 160/4.5 1 PUFF INH IH SCH ×2 (07:26→20:56)
[2020-11-13 08:56] LABS: BUN/Creatinine Ratio 16 (6-26); Blood Urea Nitrogen 14 mg/dL (8-23); Calcium 9.1 mg/dL (8.6-10.3); Carbon Dioxide 27 mEq/L (23-29); Chloride 103 mEq/L (98-107); Glucose 115 mg/dL (70-105); Magnesium 1.9 mg/dL (1.6-2.6); Osmolality,Calculated 291 (280-300); Phosphorous 4.1 mg/dL (2.7-4.5); Potassium 4.1 mEq/L (3.5-5.1); Sodium 140 mEq/L (136-145); eGFR For African Americans > 60 (> 60); eGFR For Non-African Americans > 60 (> 60)
[2020-11-13] MEDS: Furosemide 20 MG/2 ML VIAL IVP SCH ×2 (09:17→21:32)
[2020-11-13] MEDS: Folic Acid 1 MG TABLET PO SCH (09:18)
[2020-11-13] MEDS: Aspirin Enteric Coated 81 MG Tablet PO SCH (09:18)
[2020-11-13] MEDS: Heparin 25,000UNIT/250ML 1/2NS 25,000 UNIT/250 ML IV.SOLN IVC SCH (21:32)
[2020-11-13] MEDS: Metoprolol XL (24 HR) Succ 25 MG TAB.ER.24H PO SCH (21:32)
[2020-11-13] MEDS ORDERED: Melatonin 3 MG TABLET PO PRN (22:22)
[2020-11-14] MEDS: Folic Acid 1 MG TABLET PO SCH (07:59)
[2020-11-14] MEDS: Aspirin Enteric Coated 81 MG Tablet PO SCH (07:59)
[2020-11-14] MEDS: Furosemide 20 MG/2 ML VIAL IVP SCH (07:59)
[2020-11-14 08:48] VITALS: BP 116/70
[2020-11-14] MEDS ORDERED: Cyanocobalamin (B-12) 1,000 MCG TABLET PO SCH (09:00)
[2020-11-14] MEDS ORDERED: Simethicone 80 MG TAB.CHEW PO PRN (09:03)
[2020-11-14] MEDS: Budesonide/Formoterol 160/4.5 1 PUFF INH IH SCH (10:02)
== END 2020-11-14 16:42 | disposition short-term general hospital (02) | DRG 302 ==
LOC: 3ANU 13:59 → EMEROOARM 13:59 → SUATTDRO 16:25 → 3ANU 17:10
PROVIDERS: ADMIT Internal Medicine; ATTEND Internal Medicine